=== PATIENT | female | born 1970 | race Caucasian/White ===

== ENCOUNTER 2017-10-19 23:46 | Emergency (ER) | payer MEDICAID ==
[~2017-10-19] VITALS: Ht 165.1 cm; Wt 83.2 kg
[~2017-10-19 23:46] MED LIST: HYDR-569 PO
[2017-10-20 00:07] VITALS: BP 117/69
[2017-10-20 00:09] LABS: COLOR,URINE YELLOW (Yellow); GLUCOSE, URINE NEGATIVE (Neg); KETONES,URINE NEGATIVE (Neg); LEUKOCYTE ESTERASE ,URINE SMALL (Neg); NITRITES, URINE NEGATIVE (Neg); OCCULT BLOOD,URINE MODERATE (Neg); PROTEIN,URINE NEGATIVE (Neg); URINE HCG NEGATIVE (NEG); UROBILINOGEN,URINE 0.2 E.U/dL (0.2-1.0)
[2017-10-20 00:10] LABS: CLARITY,URINE SLIGHTLY CLOUDY (Clear); UA COLLECTION TYPE CLN CATCH MIDSTREAM
[2017-10-20 00:20] LABS: BACTERIA,URINE FEW /HPF (Neg); MUCUS STRANDS FEW /LPF (Neg); SQUAMOUS EPITHELIAL CELL,UR MANY /LPF (FEW); TRICHOMONAS,URINE FEW /HPF (NEGATIVE)
[2017-10-20 00:45] LABS: BASOPHILS % (AUTO) 0 % (0-1); EOSINOPHILS % (AUTO) 0.2 % (0-6); HEMATOCRIT 39.2 % (35.0-45.0); HEMOGLOBIN 13.4 g/dl (12.0-16.0); LYMPHOCYTES % (AUTO) 7.3 % (21-51); MEAN CORPUSCULAR HEMOGLOBIN 28.7 PG (27.0-31.0); MEAN CORPUSCULAR VOLUME 84.4 FL (78-98); MEAN PLATELET VOLUME 8.8 FL (7.4-10.4); MONOCYTES # (AUTO) 0.4 X10'3 (0-0.9); MONOCYTES % (AUTO) 2.9 % (2-12); NEUTROPHILS # (AUTO) 12.1 X10'3 (1.8-7.7); NEUTROPHILS % (AUTO) 89.6 % (42-75); PLATELET COUNT 278 X10'3 (140-440); RED BLOOD COUNT 4.65 X10'6 (4.20-5.60); RED CELL DISTRIBUTION WIDTH 14.3 % (11.5-14.5); WHITE BLOOD COUNT 13.5 X10'3 (4.5-11.0)
[2017-10-20 00:50] LABS: PROTHROMBIN TIME 10.2 SECONDS (9.0-12.0)
[2017-10-20 00:56] LABS: ALANINE AMINOTRANSFERASE 20 U/L (12-78); ALBUMIN 3.2 G/DL (3.4-5.0); ALBUMIN/GLOBULIN RATIO 0.9 (1.1-1.5); ALKALINE PHOSPHATASE 91 IU/L (46-116); ANION GAP 9 (8-16); ASPARTATE AMINO TRANSFERASE 13 U/L (10-37); BILIRUBIN,TOTAL 0.3 MG/DL (0.1-1.0); BLOOD UREA NITROGEN 4 MG/DL (7-18); BUN/CREATININE RATIO 6.1 (6.6-38.0); CALCIUM 8.4 MG/DL (8.5-10.1); CHLORIDE 105 MMOL/L (99-107); CREATININE 0.66 MG/DL (0.40-0.90); GLUCOSE 116 MG/DL (70-104); LIPASE 298 U/L (73-393); POTASSIUM 3.4 MMOL/L (3.5-5.1); SODIUM 140 MMOL/L (135-145); TOTAL PROTEIN 6.8 G/DL (6.4-8.2); eGFR > 90 ML/MIN
[2017-10-20] MEDS ORDERED: normal saline 1000ML IV soln IVB ONE (01:20)
[2017-10-20] MEDS ORDERED: ketorolac trometh. 30mg/ml inj. IV ONE (01:20)
[2017-10-20] MEDS ORDERED: CefTRIAXone 2gm/D5W 50ml 50 ML IV ONE (01:20)
[2017-10-20] MEDS ORDERED: ONDA4TAB9 PO ×2 (02:14→02:17)
== END 2017-10-20 02:53 | disposition home or self-care (01) ==
LOC: ER 23:47
DX: N83.202 Unspecified ovarian cyst, left side (principal); R10.9 Unspecified abdominal pain; Z88.5 Allergy status to narcotic agent; Z79.899 Other long term (current) drug therapy
CPT/HCPCS: 36415; 74176; 80053; 81001; 81025; 83690; 85025; 85610; 87491; 87591; 96365; 96375; 99285; J0696; J1885; J7030